=== PATIENT | female | born 1990 | race Two or more races ===

== ENCOUNTER 2018-12-15 18:33 | Emergency (ER) | payer SELFPAY ==
[~2018-12-15] VITALS: Ht 157.5 cm; Wt 95.3 kg
[2018-12-15 20:11] LABS: Basophils # (auto) 0 uL; Eosinophils # (auto) 0.1 uL; Hematocrit 36.4 % (36.0-46.0); Lymphocytes % (auto) 22.3 % (10.0-50.0); Monocytes # (auto) 0.5 uL
[2018-12-15 20:14] LABS: Basophils % (auto) 0.3 % (0.0-2.0); Eosinophils % (auto) 0.9 % (0.0-7.0); Hemoglobin 11.6 g/dL (12.2-16.2); Lymphocytes # (auto) 1.8 uL; Mean Corpuscular Hemoglobin 25.3 pg (28.0-32.0); Mean Corpuscular Hgb Conc. 31.7 g/dL (32.0-36.0); Mean Corpuscular Volume 79.9 fL (80.0-100.0); Monocytes % (auto) 6.5 % (0.0-12.0); Neutrophils # (auto) 5.7 uL; Nucleated Red Blood Cells % 0.1 %; Platelet Count (auto) 250 10^3/uL (140-450); Red Blood Cells 4.56 10^6/uL (4.0-5.20); White Blood Cell 8.2 10^3/uL (4.4-10.8)
[2018-12-15 20:26] LABS: Red Cell Distribution Width 20.3 % (11.8-14.3)
[2018-12-15 20:32] LABS: Chloride 107 mmol/L (98-107); Potassium 3.8 mmol/L (3.5-5.1); Sodium 138 mmol/L (136-145)
[2018-12-15 20:43] LABS: Alanine Aminotransferase 26 U/L (13-56); Albumin 3.4 g/dL (3.4-5.0); Alkaline Phosphatase 87 U/L (45-117); Anion Gap 8 (5-15); Aspartate Aminotransferase 18 U/L (15-37); BUN/Creatinine Ratio 16.9; Bilirubin, Total 0.1 mg/dL (0.2-1.0); Blood Urea Nitrogen 11 mg/dL (7-18); Calcium 8.5 mg/dL (8.5-10.1); Carbon Dioxide 23 mmol/L (21-32); GFR African American > 60 mL/min; GFR Non-African American > 60 mL/min; Glucose 112 mg/dL (74-106); Total Protein 7.3 g/dL (6.4-8.2)
[2018-12-15 22:03] LABS: Urine Bacteria MANY /hpf (None Seen); Urine Blood Negative /uL (Negative); Urine Mucus FEW (None Seen); Urine Specific Gravity 1.016 (1.001-1.035); Urine WBC 44 /hpf (0 - 5)
[2018-12-15 23:32] VITALS: BP 123/83
== END 2018-12-15 23:54 | disposition home or self-care (01) ==
LOC: ER 18:33
DX: O23.41 Unspecified infection of urinary tract in pregnancy, first trimester (principal); O26.891 Other specified pregnancy related conditions, first trimester; Z3A.10 10 weeks gestation of pregnancy; W01.0XXA Fall on same level from slipping, tripping and stumbling without subsequent striking against object, initial encounter; Y93.89 Activity, other specified; Y92.89 Other specified places as the place of occurrence of the external cause; Y99.8 Other external cause status
CPT/HCPCS: 36415; 76801; 80053; 81001; 84702; 85025

== ENCOUNTER 2019-03-08 19:25 | Observation (INO) | payer MEDICAID ==
[2019-03-08] MEDS ORDERED: PREN-96 PO (22:33)
== END 2019-03-08 20:51 | disposition home or self-care (01) | DRG 566 ==
LOC: LDRP 19:25
PROVIDERS: ADMIT Specialist; ATTEND Specialist
DX: O26.892 Other specified pregnancy related conditions, second trimester (principal); N89.8 Other specified noninflammatory disorders of vagina; Z3A.21 21 weeks gestation of pregnancy
CPT/HCPCS: 59025; 81002; 87070; 87210; 87491; 87591; G0378

== ENCOUNTER 2019-04-29 22:27 | Emergency (ER) | payer MEDICAID ==
[~2019-04-29] VITALS: Ht 157.5 cm; Wt 97.5 kg
[~2019-04-29 22:27] MED LIST: PREN-96 PO
[2019-04-29 22:48] VITALS: BP 109/62
[2019-04-30] MEDS ORDERED: methylPREDNISolone SOD SUCC 125 MG/2 ML VL IM ONE (00:15)
[2019-04-30] MEDS ORDERED: ACETAMINOPHEN/CODEINE#3 (300/30mg) TAB PO ONE (00:15)
[2019-04-30 00:35] LABS: Urine Bacteria MOD /hpf (None Seen); Urine Blood Negative /uL (Negative); Urine Mucus FEW (None Seen); Urine Specific Gravity 1.011 (1.001-1.035); Urine WBC 21 /hpf (0 - 5)
== END 2019-04-30 03:33 | disposition home or self-care (01) ==
LOC: ER 22:30
DX: O99.513 Diseases of the respiratory system complicating pregnancy, third trimester (principal); J06.9 Acute upper respiratory infection, unspecified; Z3A.29 29 weeks gestation of pregnancy; Z90.89 Acquired absence of other organs
CPT/HCPCS: 81001; 96372; 99283; J2930

== ENCOUNTER 2019-04-30 11:54 | Emergency (ER) | payer MEDICAID ==
[~2019-04-30] VITALS: Ht 157.5 cm; Wt 97.5 kg
[2019-04-30 12:01] VITALS: BP 134/72
== END 2019-04-30 13:58 | disposition home or self-care (01) ==
LOC: ER 11:54
DX: H66.93 Otitis media, unspecified, bilateral (principal); J06.9 Acute upper respiratory infection, unspecified; F41.9 Anxiety disorder, unspecified; Z87.440 Personal history of urinary (tract) infections

== ENCOUNTER 2019-06-11 18:00 | Observation (INO) | payer MEDICAID ==
[~2019-06-11] VITALS: Ht 157.5 cm; Wt 97.6 kg
[2019-06-11] MEDS ORDERED: TERBUTALINE SULFATE 1 MG/ML 1ML VIAL SC ONE (18:42)
[2019-06-11] MEDS ORDERED: NIFEdipine 10 MG CAP PO ONE (18:45)
[2019-06-11] MEDS: TERBUTALINE SULFATE 1 MG/ML 1ML VIAL SC SCH ×2 (19:14→19:41)
[2019-06-11] MEDS ORDERED: BETAMETHASONE ACET (6MG/ML) 5ML VIAL ONE (19:40)
[2019-06-12] MEDS ORDERED: BETAMETHASONE ACET (6MG/ML) 5ML VIAL IM SCH (10:00)
== END 2019-06-11 20:20 | disposition home or self-care (01) | DRG 566 ==
LOC: LDRP 18:00
PROVIDERS: ADMIT Obstetrics & Gynecology; ATTEND Obstetrics & Gynecology
DX: O26.893 Other specified pregnancy related conditions, third trimester (principal); R10.9 Unspecified abdominal pain; Z3A.35 35 weeks gestation of pregnancy
CPT/HCPCS: 59025; 76815; 81002; 96372; G0378; J0702; J3105

== ENCOUNTER 2019-06-12 19:00 | Observation (INO) | payer MEDICAID ==
[~2019-06-12] VITALS: Ht 30.5 cm; Wt 0.5 kg
[2019-06-12] MEDS ORDERED: BETAMETHASONE ACET (6MG/ML) 5ML VIAL IM ONE (19:15)
== END 2019-06-12 21:37 | disposition home or self-care (01) | DRG 563 ==
LOC: LDRP 19:00
PROVIDERS: ADMIT Obstetrics & Gynecology; ATTEND Obstetrics & Gynecology
DX: O60.03 Preterm labor without delivery, third trimester (principal); Z3A.35 35 weeks gestation of pregnancy
CPT/HCPCS: 59025; 76818; 81002; 96372; G0378

== ENCOUNTER 2019-07-10 20:36 | Observation (INO) | payer MEDICAID ==
[~2019-07-10] VITALS: Ht 157.5 cm; Wt 97.5 kg
[2019-07-12] MEDS ORDERED: CEPH250C PO (17:22)
== END 2019-07-11 00:15 | disposition home or self-care (01) | DRG 566 ==
LOC: LDRP 20:36
PROVIDERS: ADMIT Obstetrics & Gynecology; ATTEND Obstetrics & Gynecology
DX: O26.893 Other specified pregnancy related conditions, third trimester (principal); N89.8 Other specified noninflammatory disorders of vagina; R10.2 Pelvic and perineal pain; R51 Headache; Z3A.39 39 weeks gestation of pregnancy
CPT/HCPCS: 59025; 76818; 81002; G0378

== ENCOUNTER 2019-07-12 16:05 | Observation (INO) | payer MEDICAID ==
[2019-07-12] MEDS ORDERED: CEPH250C PO (17:22)
== END 2019-07-12 17:35 | disposition home or self-care (01) | DRG 566 ==
LOC: LDRP 16:05
PROVIDERS: ADMIT Specialist; ATTEND Specialist
DX: O62.9 Abnormality of forces of labor, unspecified (principal); Z3A.37 37 weeks gestation of pregnancy
CPT/HCPCS: 59025; 76818; 81002; G0378

== ENCOUNTER 2019-07-15 22:00 | Inpatient (IN) | payer MEDICAID ==
[~2019-07-15] VITALS: Ht 157.5 cm; Wt 97.1 kg
[~2019-07-15 22:00] MED LIST changes: +CEPH250C PO
[2019-07-15 23:19] LABS: Basophils # (auto) 0 uL; Basophils % (auto) 0.2 % (0.0-2.0); Eosinophils # (auto) 0 uL; Eosinophils % (auto) 0.2 % (0.0-7.0); Hematocrit 36.7 % (36.0-46.0); Hemoglobin 12.5 g/dL (12.2-16.2); Lymphocytes # (auto) 1.6 uL; Lymphocytes % (auto) 19.3 % (10.0-50.0); Mean Corpuscular Hemoglobin 32.8 pg (28.0-32.0); Mean Corpuscular Volume 96.3 fL (80.0-100.0); Monocytes # (auto) 0.5 uL; Neutrophils # (auto) 6.3 uL; Neutrophils % (auto) 74.3 % (37.0-80.0); Nucleated Red Blood Cells % 0.1 %; Platelet Count (auto) 196 10^3/uL (140-450); Red Blood Cells 3.81 10^6/uL (4.0-5.20); Red Cell Distribution Width 13.6 % (11.8-14.3); White Blood Cell 8.5 10^3/uL (4.4-10.8)
[2019-07-15 23:25] LABS: Urine Bacteria FEW /hpf (None Seen); Urine Blood Negative /uL (Negative); Urine Specific Gravity 1.011 (1.001-1.035); Urine WBC 14 /hpf (0 - 5)
[2019-07-15 23:34] LABS: INR < 0.93 (0.9-1.15); Partial Thromboplastin Time 25.5 sec (23.64-32.05)
[2019-07-15 23:36] LABS: Albumin 2.8 g/dL (3.4-5.0); BUN/Creatinine Ratio 15.3; Calcium 8.6 mg/dL (8.5-10.1); Potassium 3.8 mmol/L (3.5-5.1)
[2019-07-15 23:38] LABS: Bilirubin, Total 0.2 mg/dL (0.2-1.0); Total Protein 6.6 g/dL (6.4-8.2)
[2019-07-15] MEDS: LACTATED RINGER'S 1,000 ML IV SCH (23:54)
[2019-07-16] MEDS ORDERED: LACT. RINGERS/OXYTOCIN 20UNITS 1,000 ML IV SCH ×2 (00:02→12:54)
[2019-07-16] MEDS ORDERED: NALBUPHINE HCL 10 MG/1ml INJECTION IV PRN ×2 (00:15→12:15)
[2019-07-16] MEDS ORDERED: LIDOCAINE 2%HCL (LOCAL ANESTH.) INJ 20ML MDV IJ ONE ×2 (00:15→09:15)
[2019-07-16] MEDS ORDERED: WITCH HAZEL-GLYCERIN PAD TOP PRN (00:15)
[2019-07-16] MEDS ORDERED: PHISODERM TOP SOLN 240ML BTL TOP PRN (00:15)
[2019-07-16] MEDS ORDERED: METHYLERGONOVINE MALEATE 0.2 MG/ML AMP IM PRN (00:15)
[2019-07-16] MEDS ORDERED: PROMETHAZINE HCL 25 MG/ML 1ML IV PRN (00:15)
[2019-07-16] MEDS: LACTATED RINGER'S 1,000 ML IV SCH ×3 (00:15→09:30)
[2019-07-16] MEDS: DERMOPLAST 60ML BOTTLE TOP PRN (04:01)
[2019-07-16] MEDS ORDERED: LACTATED RINGER'S 500 ML IV ONE (09:11)
[2019-07-16] MEDS ORDERED: NALOXONE HCL 0.4 MG/ML VIAL IV ONE (09:15)
[2019-07-16] MEDS ORDERED: ePHEDrine SULFATE 50 MG/ML AMP IV ONE (09:15)
[2019-07-16] MEDS ORDERED: LIDOCAINE HCL 2 %PF INJ 10ML AMP IJ ONE (09:15)
[2019-07-16] MEDS ORDERED: fentaNYL CITRATE 100 MCG/2 ML VL IV ONE (09:15)
[2019-07-16] MEDS ORDERED: fentaNYL W ROPIVACAINE 150 ML EPI SCH (09:15)
[2019-07-16] MEDS ORDERED: ACETAMINOPHEN 325 MG TAB PO PRN (12:00)
[2019-07-16] MEDS: IBUPROFEN 600 MG TAB PO PRN ×3 (12:18→21:43)
--- NOTE | 2019-07-16 13:30 | NUR ---
Ambulation: Patient OOB with standby assistance by RN. Patient ambulated to bathroom with steady gait. Patient able to void 600ml without difficulty. [facility] teaching provided with returned demonstration by patient. Clean gown provided and bed linen changed. Patient ambulated back to bed with steady gait and no distress noted.
--- NOTE | 2019-07-16 14:00 | NUR ---
REPORT ON STABLE PT TO BALJEET HILL RN.
[2019-07-16 15:00] VITALS: BP 108/52
[2019-07-16 19:00] VITALS: BP 109/59
--- NOTE | 2019-07-16 21:43 | NUR ---
Pain: Patient called c/o abdominal cramps ,pain scale 6/10. Motrin 600 mg 1 Tab PO given for pain. Patient up to the restroom and had shower. Instructed to call for assist if needed and verbalized understanding.
[2019-07-16 23:00] VITALS: BP 103/51
[2019-07-17] MEDS: IBUPROFEN 600 MG TAB PO PRN ×3 (00:39→09:29)
[2019-07-17 02:52] VITALS: BP 104/55
[2019-07-17 04:09] LABS: RPR Non Reactive (Non Reactive)
--- NOTE | 2019-07-17 04:14 | NUR ---
Pain: Patient c/o burning and sharp pain in her perineal area, pain scale 6/10. Motrin 600 mg PO given.
--- NOTE | 2019-07-17 05:14 | NUR ---
Re-assessment: Patient relieved of pain in her perineal area. Pain scale 0/10. Will continue to monitor.
[2019-07-17 07:15] VITALS: BP 102/65
--- NOTE | 2019-07-17 07:47 | NUR ---
IV removal IV DC'd with clean technique, catheter fully intact. Pressure dressing applied to site. Patient tolerated well.
[2019-07-17] MEDS ORDERED: TETANUS-DIPTH-ACEL PERTUSSIS 0.5ML SYRG IM ONE (09:15)
[2019-07-17 11:00] VITALS: BP 94/53
[2019-07-17] MEDS: DERMOPLAST 60ML BOTTLE TOP PRN (11:53)
--- NOTE | 2019-07-17 12:18 | NUR ---
Discharge: Discharge instructions given as ordered. Pt encouraged to follow up with [facility] as instructed. All questions and concerns addressed. Patient verbalized understanding. Medication reconciliation completed and copy given to patient. All required/requested vaccines given and copies of vaccinations given to patient. Patient encouraged to prepare to depart unit.
== END 2019-07-17 12:35 | disposition home or self-care (01) | DRG 560 ==
LOC: LDRP 22:00
PROVIDERS: ADMIT Obstetrics & Gynecology; ATTEND Obstetrics & Gynecology
PROC: 0HQ9XZZ Repair Perineum Skin, External Approach (ICD-10-PCS; principal; 2019-07-16)
PROC: 10E0XZZ Delivery of Products of Conception, External Approach (ICD-10-PCS; 2019-07-16)
PROC: 3E0P7VZ Introduction of Hormone into Female Reproductive, Via Natural or Artificial Opening (ICD-10-PCS; 2019-07-16)
DX: O48.0 Post-term pregnancy (principal); O70.0 First degree perineal laceration during delivery; Z37.0 Single live birth; Z3A.40 40 weeks gestation of pregnancy
CPT/HCPCS: 36415; 59025; 59409; 80053; 81001; 81002; 84112; 85025; 85610; 85730; 86592; 86850; 86900; 86901; 87086; 90715; 96374; 96375; G0378; J2590

== ENCOUNTER → 2019-10-22 | Day surgery (SDC) | payer MEDICAID ==
[~2019-10-22] VITALS: Ht 157.5 cm; Wt 89.8 kg
[~2019-10-22] MED LIST changes: -CEPH250C PO; +GLYCOPYRROLATE 0.2 MG/ML 1ML VIAL ONE; +HYDROmorphone HCL 2 MG/ML VL IV PRN; +KETOROLAC TROMETH 30 MG/ML 1ML VIAL IV ONE; +KETOROLAC TROMETH 60MG/2ML VIAL ONE; +LACTATED RINGER'S 1,000 ML IV SCH; +MEPERIDINE HCL (25 MG/ML) 1ML VIAL ONE; +METOCLOPRAMIDE HCL 5MG/ml INJ 2ml VIAL IV PRN; +MIDAZOLAM HCL 1MG/1ML-2 ML VIAL ONE; +MORPHINE SULFATE 4 MG/ML SYR/VIAL IV PRN; +NEOSTIGMINE 1 MG/ML INJ (10mg/10ML VIAL) ONE; +ONDANSETRON HCL 4 MG/2 ML VIAL IV PRN; +ONDANSETRON HCL 4 MG/2 ML VIAL ONE; +PROPOFOL 10 MG/ML 20 ML IV ONE; +ROCURONIUM 10MG/ML 10ML VIAL IV ONE; +SODIUM CHLORIDE LOCK 10 ML ONE; +ceFAZolin 1GM/50ML 50 ML IV ONE; +fentaNYL CITRATE 100 MCG/2 ML VL IV PRN; +fentaNYL CITRATE 100 MCG/2 ML VL ONE
[2019-10-22 10:16] VITALS: BP 114/68
== END | disposition home or self-care (01) ==
LOC: SUR 07:22
PROVIDERS: ATTEND Obstetrics & Gynecology
DX: Z30.2 Encounter for sterilization (principal); D64.9 Anemia, unspecified; F17.210 Nicotine dependence, cigarettes, uncomplicated; Z98.890 Other specified postprocedural states
CPT/HCPCS: 58671; 86850; 86900; 86901; J0690; J1170; J1885; J2175; J2250; J2405; J2704; J3010

== ENCOUNTER 2019-12-06 21:29 | Emergency (ER) | payer MEDICAID ==
[~2019-12-06] VITALS: Ht 157.5 cm; Wt 95.3 kg
[~2019-12-06 21:29] MED LIST changes: -GLYCOPYRROLATE 0.2 MG/ML 1ML VIAL ONE; -HYDROmorphone HCL 2 MG/ML VL IV PRN; -KETOROLAC TROMETH 30 MG/ML 1ML VIAL IV ONE; -KETOROLAC TROMETH 60MG/2ML VIAL ONE; -LACTATED RINGER'S 1,000 ML IV SCH; -MEPERIDINE HCL (25 MG/ML) 1ML VIAL ONE; -METOCLOPRAMIDE HCL 5MG/ml INJ 2ml VIAL IV PRN; -MIDAZOLAM HCL 1MG/1ML-2 ML VIAL ONE; -MORPHINE SULFATE 4 MG/ML SYR/VIAL IV PRN; -NEOSTIGMINE 1 MG/ML INJ (10mg/10ML VIAL) ONE; -ONDANSETRON HCL 4 MG/2 ML VIAL IV PRN; -ONDANSETRON HCL 4 MG/2 ML VIAL ONE; -PROPOFOL 10 MG/ML 20 ML IV ONE; -ROCURONIUM 10MG/ML 10ML VIAL IV ONE; -SODIUM CHLORIDE LOCK 10 ML ONE; -ceFAZolin 1GM/50ML 50 ML IV ONE; -fentaNYL CITRATE 100 MCG/2 ML VL IV PRN; -fentaNYL CITRATE 100 MCG/2 ML VL ONE
[2019-12-06 22:19] LABS: Basophils # (auto) 0.1 uL; Eosinophils # (auto) 0.1 uL; Hematocrit 36.9 % (36.0-46.0); Hemoglobin 12.3 g/dL (12.2-16.2); Lymphocytes # (auto) 2.2 uL; Lymphocytes % (auto) 28.9 % (10.0-50.0); Mean Corpuscular Hemoglobin 29.8 pg (28.0-32.0); Mean Corpuscular Hgb Conc. 33.5 g/dL (32.0-36.0); Mean Corpuscular Volume 89.1 fL (80.0-100.0); Monocytes # (auto) 0.6 uL; Monocytes % (auto) 7.8 % (0.0-12.0); Neutrophils # (auto) 4.6 uL; Neutrophils % (auto) 61.3 % (37.0-80.0); Platelet Count (auto) 269 10^3/uL (140-450); Red Blood Cells 4.14 10^6/uL (4.0-5.20); Red Cell Distribution Width 12.5 % (11.8-14.3); White Blood Cell 7.5 10^3/uL (4.4-10.8)
[2019-12-06 22:28] LABS: Urine Bacteria FEW /hpf (None Seen); Urine Blood Negative /uL (Negative); Urine Specific Gravity 1.008 (1.001-1.035); Urine WBC 5 /hpf (0 - 5)
[2019-12-06 22:36] LABS: Calcium 8.8 mg/dL (8.5-10.1); Potassium 3.7 mmol/L (3.5-5.1)
[2019-12-06 22:39] LABS: Bilirubin, Total 0.1 mg/dL (0.2-1.0); Total Protein 7.7 g/dL (6.4-8.2)
[2019-12-06 23:44] VITALS: BP 131/56
== END 2019-12-07 00:42 | disposition home or self-care (01) ==
LOC: ER 21:33
DX: R10.11 Right upper quadrant pain (principal); R11.2 Nausea with vomiting, unspecified
CPT/HCPCS: 36415; 74176; 80053; 81001; 81025; 83690; 85025

== ENCOUNTER 2021-08-10 18:51 | Emergency (ER) | payer MEDICAID ==
[~2021-08-10] VITALS: Ht 157.5 cm; Wt 97.5 kg
[2021-08-10 23:51] VITALS: BP 119/84
== END 2021-08-11 00:01 | disposition home or self-care (01) ==
LOC: ER 18:52
DX: M77.32 Calcaneal spur, left foot (principal); Z90.89 Acquired absence of other organs; Z79.899 Other long term (current) drug therapy
CPT/HCPCS: 73630

== ENCOUNTER 2022-05-23 15:40 | Emergency (ER) | payer MEDICAID ==
[~2022-05-23] VITALS: Ht 157.5 cm; Wt 66.7 kg
[2022-05-23] MEDS ORDERED: ACETAMINOPHEN 500 MG TAB PO ONE (16:15)
[2022-05-23] MEDS ORDERED: SODIUM CHLORIDE 0.9% 1,000 ML IV ONE (17:15)
[2022-05-23] MEDS ORDERED: KETOROLAC TROMETH 30 MG/ML 1ML VIAL IV ONE (17:15)
[2022-05-23 17:26] LABS: Eosinophils # (auto) 0 10 ^3/uL (0-0.8); Monocytes # (auto) 0.3 10 ^3/uL (0-1.3)
[2022-05-23 17:28] LABS: Basophils # (auto) 0 10 ^3/uL (0-0.2); Hematocrit 27.1 % (36.0-46.0); Lymphocytes # (auto) 0.3 10 ^3/uL (0.4-5.4); Lymphocytes % (auto) 3.1 % (10.0-50.0); Mean Corpuscular Hemoglobin 19.3 pg (28.0-32.0); Mean Corpuscular Hgb Conc. 29.6 g/dL (32.0-36.0); Mean Corpuscular Volume 65.4 fL (80.0-100.0); Neutrophils # (auto) 10.2 10 ^3/uL (1.6-8.6); Neutrophils % (auto) 93.9 % (37.0-80.0); Red Blood Cells 4.15 10^6/uL (4.0-5.20); Red Cell Distribution Width 18.7 % (11.8-14.3); White Blood Cell 10.8 10^3/uL (4.4-10.8)
[2022-05-23 17:43] LABS: BUN/Creatinine Ratio 10.5; Potassium 3.5 mmol/L (3.5-5.1)
[2022-05-23 17:44] LABS: Calcium 8.1 mg/dL (8.5-10.1)
[2022-05-23] MEDS ORDERED: cefTRIAXone SOD 1,000 MG VL IM ONE (18:15)
[2022-05-23] MEDS ORDERED: NAPR500T31 PO (18:19)
[2022-05-23] MEDS ORDERED: FER325T PO (18:19)
[2022-05-23 18:30] VITALS: BP 110/72
[2022-05-23] MEDS ORDERED: cefTRIAXone SOD 1,000 MG VL IV ONE (18:30)
[2022-05-23] MEDS ORDERED: cefTRIAXone 1GM/50ML D5W 50 ML IV ONE ×2 (18:36→18:45)
== END 2022-05-23 18:53 | disposition home or self-care (01) ==
LOC: ER 15:40
DX: D64.9 Anemia, unspecified (principal); R11.2 Nausea with vomiting, unspecified; R19.7 Diarrhea, unspecified; Z90.89 Acquired absence of other organs; Z79.899 Other long term (current) drug therapy
CPT/HCPCS: 36415; 80048; 85025; 93005; 96361; 96365; 96375; 99284; J0696; J1885; J7030

== ENCOUNTER 2022-09-24 19:26 | Emergency (ER) | payer MEDICAID ==
[~2022-09-24] VITALS: Ht 157.5 cm; Wt 95.0 kg
[~2022-09-24 19:26] MED LIST changes: +FER325T PO; +NAPR500T31 PO
[2022-09-24 20:11] LABS: Basophils % (auto) 0.6 % (0.0-2.0); Eosinophils # (auto) 0.1 10 ^3/uL (0-0.8); Lymphocytes # (auto) 1.8 10 ^3/uL (0.4-5.4); Monocytes # (auto) 0.5 10 ^3/uL (0-1.3)
[2022-09-24 20:12] LABS: Basophils # (auto) 0.1 10 ^3/uL (0-0.2); Hematocrit 36.3 % (36.0-46.0); Lymphocytes % (auto) 21.9 % (10.0-50.0); Mean Corpuscular Hemoglobin 27.1 pg (28.0-32.0); Mean Corpuscular Hgb Conc. 33.1 g/dL (32.0-36.0); Mean Corpuscular Volume 81.9 fL (80.0-100.0); Monocytes % (auto) 5.7 % (0.0-12.0); Neutrophils # (auto) 5.9 10 ^3/uL (1.6-8.6); Neutrophils % (auto) 70.8 % (37.0-80.0); Red Blood Cells 4.43 10^6/uL (4.0-5.20); Red Cell Distribution Width 15.6 % (11.8-14.3); White Blood Cell 8.4 10^3/uL (4.4-10.8)
[2022-09-24 20:34] LABS: Albumin 3.9 g/dL (3.4-5.0); Anion Gap 5 (5-15); Blood Urea Nitrogen 12 mg/dL (7-18); Calcium 8.7 mg/dL (8.5-10.1); Carbon Dioxide 28 mmol/L (21-32); Chloride 109 mmol/L (98-107); Glucose 99 mg/dL (74-106); Potassium 4.2 mmol/L (3.5-5.1); Sodium 142 mmol/L (136-145)
[2022-09-24 20:38] LABS: Alanine Aminotransferase 16 U/L (13-56); Alkaline Phosphatase 89 U/L (45-117); Aspartate Aminotransferase < 3 U/L (15-37); BUN/Creatinine Ratio 16.4; Bilirubin, Total 0.2 mg/dL (0.2-1.0); GFR African American 118 mL/min; GFR Non-African American 98 mL/min; Total Protein 7.5 g/dL (6.4-8.2)
[2022-09-24] MEDS ORDERED: ALUM & MAG HYDROX-SIMETH LIQ(MAALOX) 30 ML PO ONE (21:30)
[2022-09-24] MEDS ORDERED: LIDOCAINE VISCOUS 2% 15ML UD MT ONE (22:30)
[2022-09-24] MEDS ORDERED: OMEP-434 PO (23:16)
[2022-09-24 23:28] VITALS: BP 119/93
== END 2022-09-24 23:33 | disposition home or self-care (01) ==
LOC: ER 19:28
DX: R07.89 Other chest pain (principal); K21.00 Gastro-esophageal reflux disease with esophagitis, without bleeding; Z90.89 Acquired absence of other organs; Z79.899 Other long term (current) drug therapy; Z88.1 Allergy status to other antibiotic agents
CPT/HCPCS: 36415; 71045; 80053; 83880; 84484; 85025; 93005